=== PATIENT | male | born 1950 | race Caucasian/White ===

== ENCOUNTER → 2016-05-29 | Outpatient (CLI) | payer MEDICARE, BC ==
[~2016-05-29] MED LIST: ASPI325T32 PO; ATOR40TA68 PO; FINASTERIDE; HYDR-3498 PO; HYDR200T5 PO; MISO100T PO; PHE100 PO; PREVACID PO; TESTOSTERONE; ULT50 PO
--- NOTE | 2016-05-29 16:47 | RADRPT ---
PROCEDURE: XR Left Hip and pelvis. CLINICAL INDICATION: Left hip pain. Pelvic pain. Postop. TECHNIQUE: Three views. Frontal pelvis. Frontal and lateral left hip. COMPARISON: 02/28/2016. FINDINGS: There is no fracture or dislocation. The soft tissues are normal. There are bilateral total hip arthroplasties which appears satisfactory. There is no fracture, disl ocation, or loosening. There is no lytic or blastic lesion. The upper pelvis is not included on the images. IMPRESSION: 1. Satisfactory postoperative appearance of both hips. 2. Otherwise unremarkable study. RPTAT: QQ .Mg Fabian MD, MD Date Time Electronically viewed and signed by .Mg Fabian MD, on 05/29/2016 16:47 .R/
== END | disposition home or self-care (01) ==
LOC: HKI 15:32
PROVIDERS: ATTEND Orthopaedic Surgery
DX: Z47.1 Aftercare following joint replacement surgery (principal); M25.562 Pain in left knee; Z96.643 Presence of artificial hip joint, bilateral
CPT/HCPCS: 73502; G0463

== ENCOUNTER → 2016-11-27 | Outpatient (CLI) | payer MEDICARE, BC ==
[~2016-11-27] MED LIST changes: +TRAM50TA2 PO; -ULT50 PO
--- NOTE | 2016-11-27 17:29 | RADRPT ---
PROCEDURE: XR Left Hip and pelvis. CLINICAL INDICATION: Left hip pain. Pelvic pain. TECHNIQUE: 3 views. Frontal pelvis. Frontal and lateral left hip. COMPARISON: 05/29/2016. FINDINGS: There are bilateral total hip arthroplasties. These appear satisfactory with no fracture, dislocati on, or loosening. The soft tissues are normal. The upper pelvis is not included on the images. There is no lytic or blastic lesion. IMPRESSION: 1. Satisfactory postoperative appearance of both hips. RPTAT: QQ .Mg Fabian MD, MD Date Time Electronically viewed and signed by .Mg Fabian MD, on 11/27/2016 17:29 .R/
== END | disposition home or self-care (01) ==
LOC: HKI 15:37
PROVIDERS: ATTEND Orthopaedic Surgery
DX: M48.06 Spinal stenosis, lumbar region (principal); M51.36 Other intervertebral disc degeneration, lumbar region; Z96.643 Presence of artificial hip joint, bilateral
CPT/HCPCS: 73502; G0463